=== PATIENT | female | born 1975 | race Caucasian/White ===

== ENCOUNTER 2020-03-14 18:43 | Emergency (ER) | payer BC, MEDICAID ==
[~2020-03-14] VITALS: Ht 149.9 cm; Wt 70.0 kg
[2020-03-14 18:45] VITALS: BP 125/77
[2020-03-14] MEDS ORDERED: ACETAMINOPHEN 500MG TABLET PO ONE (21:15)
[2020-03-14 21:52] LABS: BASOPHILS % 0.7 % (0.0-2.0); HEMATOCRIT. 45.8 % (36.0-48.0); HEMOGLOBIN. 15.5 g/dL (12.0-16.0); LYMPHOCYTES % 14.6 % (20.0-50.0); MEAN CORPUSCULAR HEMOGLOBIN 26.8 pg (28.0-32.0); MEAN CORPUSCULAR VOLUME 79.2 fL (81.0-99.0); MEAN PLATELET VOLUME 10.2 fl (7.4-10.4); MONOCYTES % 8.6 % (2.0-8.0); NEUTROPHILS % 76.1 % (40.0-76.0); PLATELET 186 x1000/uL (130-400); RED BLOOD CELL COUNT 5.79 mill/uL (4.2-5.4); RED CELL DISTRIBUTION WIDTH 14.2 % (11.6-14.6)
[2020-03-14 21:55] LABS: CHLORIDE 93 mEq/L (98-107)
[2020-03-14 22:12] LABS: PROTHROMBIN TIME 10.9 sec (9.6-11.0)
[2020-03-14 22:30] LABS: CLARITY URINE CLEAR (CLEAR); COLOR URINE YELLOW (YELLOW); KETONES URINE TRACE (NEGATIVE); LEUKOCYTE ESTERASE URINE NEGATIVE (NEGATIVE); NITRITE URINE NEGATIVE (NEGATIVE); OCCULT BLOOD URINE 2+ (NEGATIVE); PH URINE 5.5 (4.5-8.0); PROTEIN URINE 2+ (NEGATIVE); SPECIFIC GRAVITY URINE 1.031 (1.005-1.030); UROBILINOGEN URINE 0.2 E.U./dL (0.2-1.0)
[2020-03-14] MEDS ORDERED: ONDANSETRON HCL 4MG/2ML INJ IV STA (23:49)
[2020-03-14] MEDS ORDERED: MORPHINE SULFATE 4 MG/ML CPJ (NOT FOR IM USE) IV STA (23:49)
[2020-03-15] MEDS ORDERED: IOHEXOL-300 100 ML BOTTLE ONE (02:59)
[2020-03-17] MEDS ORDERED: ATEN50TA MT (23:31)
[2020-03-17] MEDS ORDERED: METF-816 MT (23:32)
== END 2020-03-15 03:44 | disposition home or self-care (01) ==
LOC: ER 18:43
DX: U07.1 COVID-19 (principal); R10.32 Left lower quadrant pain; E11.9 Type 2 diabetes mellitus without complications; I10 Essential (primary) hypertension; Z88.8 Allergy status to other drugs, medicaments and biological substances
CPT/HCPCS: 36415; 74177; 80053; 81003; 81025; 83690; 85025; 85610; 87635; 93005; 96374; 96375; 99285; C9803; J2270; J2405; Q9967

== ENCOUNTER 2023-03-13 20:02 | Emergency (ER) | payer MEDICAID ==
[~2023-03-13] VITALS: Ht 149.9 cm; Wt 72.8 kg
[~2023-03-13 20:02] MED LIST: ATEN50TA MT; METF-874 MT
[2023-03-13 20:12] VITALS: O2SAT 98
[2023-03-13] MEDS ORDERED: KETOROLAC 60MG/2ML VIAL IM ONE (21:30)
[2023-03-13] MEDS ORDERED: ONDANSETRON 4MG ODT PO ONE (21:30)
[2023-03-13 23:07] VITALS: BP 137/84; PULSE 70; RESP 14; TEMP 98.2
[2023-03-13] MEDS ORDERED: IBUP-2028 MT (23:24)
== END 2023-03-13 23:40 | disposition home or self-care (01) ==
LOC: ER 20:02
DX: R51.9 Headache, unspecified (principal); I10 Essential (primary) hypertension; E11.9 Type 2 diabetes mellitus without complications; Z98.890 Other specified postprocedural states
CPT/HCPCS: 99283; 81025; 93005; 96372; Q0162; J1885

== ENCOUNTER 2023-07-25 10:18 | Emergency (ER) | payer BC, MEDICAID, OTHER ==
[~2023-07-25] VITALS: Ht 147.3 cm; Wt 72.0 kg
[~2023-07-25 10:18] MED LIST changes: +IBUP-2028 MT
[2023-07-25 10:27] VITALS: TEMP 98.9; O2SAT 99
[2023-07-25 11:01] LABS: EOSINOPHILS % 0.3 % (0.0-5.0); HEMOGLOBIN. 11.6 g/dL (12.0-16.0); MEAN CORPUSCULAR HEMOGLOBIN 19.3 pg (28.0-32.0); MEAN CORPUSCULAR HGB CONC 30.6 g/dL (31.0-37.0); MEAN PLATELET VOLUME 9.4 fl (7.4-10.4); MONOCYTES % 4.1 % (2.0-8.0); NEUTROPHILS % 86.6 % (40.0-76.0); PLATELET 406 x1000/uL (130-400); RED BLOOD CELL COUNT 6.03 mill/uL (4.2-5.4); RED CELL DISTRIBUTION WIDTH 19.8 % (11.6-14.6); WHITE BLOOD COUNT 11.6 x1000/uL (4.5-11.0)
[2023-07-25 11:06] LABS: DIFFERENTIAL COMMENT 1
[2023-07-25 11:07] LABS: ADD RBC MORPHOLOGY YES
[2023-07-25 11:10] LABS: ALANINE AMINOTRANSFERASE 11 IU/L (10-49); ALBUMIN 4.5 g/dL (3.2-4.8); ASPARTATE AMINOTRANSFERASE 20 IU/L (<34); BILIRUBIN TOTAL 0.7 mg/dL (0.1-1.0); CALCIUM 8.7 mg/dL (8.7-10.4); CARBON DIOXIDE 19 mEq/L (21-32); CHLORIDE 103 mEq/L (98-107); CREATININE 0.7 mg/dL (0.6-1.0); GLUCOSE 228 mg/dL (70-105); SODIUM 135 mEq/L (136-145); UREA NITROGEN BLOOD 9 mg/dL (9-23)
[2023-07-25] MEDS: ONDANSETRON HCL 4MG/2ML INJ IM ONE (11:41)
[2023-07-25] MEDS: FAMOTIDINE 20MG/2ML VIAL IV ONE (11:41)
[2023-07-25] MEDS: MORPHINE SULFATE 4 MG/ML INJ (FOR IV/IM USE) IV ONE (11:41)
[2023-07-25] MEDS ORDERED: ONDA4TAB11 PO (14:14)
[2023-07-25] MEDS ORDERED: FAMO40TA7 MT (14:14)
[2023-07-25 14:35] VITALS: BP 114/76; PULSE 110; RESP 16
[2023-07-25 16:03] LABS: ANISOCYTOSIS 2+; MICROCYTOSIS 4+; PLATELET ESTIMATE SLIGHTLY INCREASED
[2023-07-25 16:04] LABS: HYPOCHROMASIA 1+
== END 2023-07-25 14:37 | disposition home or self-care (01) ==
LOC: ER 10:18
DX: R10.13 Epigastric pain (principal); E11.65 Type 2 diabetes mellitus with hyperglycemia; I10 Essential (primary) hypertension; Z98.890 Other specified postprocedural states; Z88.8 Allergy status to other drugs, medicaments and biological substances; Z90.89 Acquired absence of other organs
CPT/HCPCS: 80053; 83690; 85025; 36415; 76700; 96372; 96374; 96375; 99285; J3490; J2405; J2270; Z7610

== ENCOUNTER 2024-05-23 14:45 | Emergency (ER) | payer BC ==
[~2024-05-23] VITALS: Ht 162.6 cm; Wt 67.0 kg
[~2024-05-23 14:45] MED LIST changes: +FAMO40TA7 MT; +METF-1150 MT; -METF-874 MT; +ONDA-239 PO
[2024-05-23 14:46] VITALS: O2SAT 100
[2024-05-23 14:56] VITALS: TEMP 37.2; O2SAT 100
[2024-05-23] MEDS ORDERED: IBUP-2029 MT (16:03)
[2024-05-23 16:17] VITALS: BP 155/78; PULSE 78; RESP 16
[2024-05-23] MEDS: IBUPROFEN 600MG TABLET PO ONE (16:17)
== END 2024-05-23 16:24 | disposition home or self-care (01) ==
LOC: ER 14:54
DX: M26.601 Right temporomandibular joint disorder, unspecified (principal); E11.9 Type 2 diabetes mellitus without complications; I10 Essential (primary) hypertension; Z90.89 Acquired absence of other organs; Z79.84 Long term (current) use of oral hypoglycemic drugs; Z79.899 Other long term (current) drug therapy; Z88.8 Allergy status to other drugs, medicaments and biological substances
CPT/HCPCS: 99282

== ENCOUNTER 2024-10-21 23:05 | Emergency (ER) | payer BC ==
[~2024-10-21] VITALS: Ht 147.3 cm; Wt 66.0 kg
[~2024-10-21 23:05] MED LIST changes: +IBUP-2029 MT
[2024-10-21 23:09] VITALS: O2SAT 99
[2024-10-22 00:02] LABS: BASOPHILS % 0.9 % (0.0-2.0); EOSINOPHILS % 1.4 % (0.0-5.0); HEMATOCRIT. 33.6 % (36.0-48.0); HEMOGLOBIN. 10.3 g/dL (12.0-16.0); LYMPHOCYTES % 12.4 % (20.0-50.0); MEAN PLATELET VOLUME 8.6 fl (7.4-10.4); MONOCYTES % 7.4 % (2.0-8.0); NEUTROPHILS % 77.9 % (40.0-76.0); PLATELET 282 x1000/uL (130-400); RED BLOOD CELL COUNT 5.35 mill/uL (4.2-5.4); RED CELL DISTRIBUTION WIDTH 19.6 % (11.6-14.6)
[2024-10-22 00:03] LABS: ADD RBC MORPHOLOGY YES
[2024-10-22 00:12] LABS: CREATININE 0.7 mg/dL (0.6-1.0); UREA NITROGEN BLOOD 11 mg/dL (9-23)
[2024-10-22 00:14] LABS: TROPONIN I HIGH SENSITIVITY < 4 ng/L (3.0-34)
[2024-10-22 00:57] LABS: PLATELET ESTIMATE NORMAL
[2024-10-22] MEDS ORDERED: BENZ100C86 MT (01:42)
[2024-10-22 01:51] VITALS: BP 116/74; PULSE 85; RESP 16; TEMP 37.1; O2SAT 99
== END 2024-10-22 01:54 | disposition home or self-care (01) ==
LOC: ER 23:05
DX: B34.9 Viral infection, unspecified (principal); R05.9 Cough, unspecified; E11.9 Type 2 diabetes mellitus without complications; I10 Essential (primary) hypertension; R06.02 Shortness of breath; Z79.899 Other long term (current) drug therapy; Z90.89 Acquired absence of other organs
CPT/HCPCS: 36415; 71045; 80048; 83880; 84484; 85025; 93005; 99285